=== PATIENT | female | born 1980 | race Caucasian/White ===

== ENCOUNTER 2016-07-25 18:47 | Emergency (ER) | payer OTHER ==
[~2016-07-25] VITALS: Ht 177.8 cm; Wt 63.6 kg
[2016-07-25 18:49] VITALS: BP 132/84; PULSE 85; RESP 22; O2SAT 99
[2016-07-25] MEDS ORDERED: Albuterol 2.5 mg/3 mL Inhalation Solution NEB ONE ×3 (18:55→21:30)
--- NOTE | 2016-07-25 18:57 | ED.REPORT ---
HPI-Allergic Reaction Date of Service Jul 25, 2016 ED Provider: Dr Montelongo Pt is an otherwise healthy 36 year old female with a seafood allergy who presents to the ED with SOB after eating chicken 15 minutes ago. The pt c/o associated coughing, nausea, and cannot speak more than one word. The pt denies any other symptoms. Nursing Notes Stated Complaint: ALLERGIC REACTION/PROBLEMS BREATHING Chief Complaint: Allergic Reaction Nursing Notes Reviewed: Yes Allergies: Coded Allergies: shellfish derived (Verified Allergy, Unknown, 07/25/16) General Time Seen by MD: 18:57 Chief Complaint Allergic reaction Hx Obtained From: Patient Arrived By: Walk-in Onset Occurred: 1 - 15 minutes ago Symptom Duration: Since onset Recent Healthcare: No recent doctor visit, No recent hospitalization Similar Sx Previous: Yes Past Medical History Past Medical History Seafood allergy Denies: Congestive heart failure, Diabetes mellitus Past Surgical History Breast augmentation Knee Smoking History Unknown if Ever Smoker Social History Alcohol Use: Denies alcohol use Drug Use: Denies drug use Other Social History: Good social support Ambulatory Status Independent Review of Systems Constitutional: Denies: Chills Respiratory: Reports: Non-productive cough, Shortness of breath GI: Reports: Nausea, Denies: Vomiting Allergy / Immune: Reports: Allergic reaction Complete sys rev & neg: except as marked. Physical Exam Initial Vital Signs Vital Signs (First) Date Time Temp Pulse Resp B/P Pulse Ox O2 Delivery O2 Flow Rate FiO2 07/25/16 18:49 85 22 132/84 99 Room Air 07/25/16 23:44 36.9 Initial VS: Reviewed ENT: Mucous membranes moist, Conjunctiva normal, No scleral icterus Neck: Supple, Full range of motion Abdomen / GI: Soft, Non-tender Extremities: Vascular intact, Neuro intact Neurologic: Alert, Oriented, Nonfocal Psychiatric: Mood/affect normal, Behavior normal General/Constitutional: Awake, Alert, Cooperative, Not toxic appearing Resp Distress / Stridor: Positive: Resp distress moderate Course wheezing bilaterally Cardiovascular: Heart rate NL, Regular rhythm, Heart sounds NL No angioedema Skin: Atraumatic, Warm, Dry, Intact Interpretation & Diagnostics Lab Results Interpretation Test 07/25/16 19:00 Hold Purple Top Tube Received (Received) Hold Blue Top Tube Received (Received) Hold [place] Top Tube Received (Received) Re-Eval/Medical Decision Source of Hx: Old records Re-Evaluation/Progress #1: Time of Eval: 19:26 Patient Status: Condition improved Re-Evaluation/Progress Note: Pt rechecked. Pt has significant improvement and is able to converse with her family. All questions were answered. Re-Evaluation/Progress #2: Time of Eval: 20:50 Patient Status: Condition improved Re-Evaluation/Progress Note: Pt rechecked. Pt has remarkable improvement. All questioned were answered. Re-Evaluation/Progress #3: Time of Eval: 21:30 Patient Status: Condition worsened Re-Evaluation/Progress Note: Pt rechecked. Pt is starting to cough and get wheezy again. All questions were answered. Re-Evaluation/Progress #4: Time of Eval: 23:28 Patient Status: Condition improved Re-Evaluation/Progress Note: Pt rechecked. All symptoms resolved. The pt has an epipen at home and will take one home. Pt does not want to be admitted. She had her with her. Informed pt of plan for discharge. Pt understands and agrees with plan for discharge. F/U instructions and RTER warnings given. All questions addressed. Counseled Regarding: Diagnosis, Lab results, Need for follow-up, When/why to return to ED Discharge & Departure Primary Impression: Anaphylaxis Encounter type: initial encounter Qualified Code: T78.2XXA - Anaphylactic shock, unspecified, initial encounter Additional Impression: Seafood allergy Disposition: Home Discharge Condition All VS Reviewed: Yes Condition: Stable Patient Instructions: Anaphylaxis (ED) Additional Instructions: Keep the EpiPen with you at all times. Use if you need it. Take Prednisone daily for 5 days and [id number] Benadryl as directed. If you have any shortness of breath or any tongue or lip swelling give yourself the epinephrine and come right to the emergency department. I recommend that you contact your primary care physician for referral to an bond analyst to try to find out what else you are also allergic to. Return tonight if any problems or any new or worrisome symptoms. Referrals: Mike Brown DO (PCP) Crit Care Except Billable Proc Time Spent: 105-134 minutes Services Performed: Patient management by me (frequent evaluations, epinephrine administration and multiple doses of bronchodilators. Critical care time of 120 minutes.), Time spent at bedside, Reviewing test results, Discussing patient care, Time with fam/surrogate Scribe Attestation Portions of this note were transcribed by Chantal Guerin. I, Dr. Sherwood personally performed the history, physical exam and medical decision-making; I reviewed and confirmed the accuracy of the information in the transcribed note. Signed by: Venus Braxton, 07/25/16 and 20:20 copies to: Mike Brown Todd P DO Jul 25, 2016 18:57 Chantal King Jul 25, 2016 19:40
[2016-07-25] MEDS ORDERED: Dexamethasone 10 mg/mL Inj IVPUSH ONE (19:00)
[2016-07-25 19:03] VITALS: PULSE 89; RESP 29; O2SAT 100
[2016-07-25] MEDS: Sodium Chloride LOK Flush 10 mL Syringe IVFLUSH SCH ×2 (19:15→19:18)
[2016-07-25 19:46] VITALS: BP 127/76; PULSE 114; RESP 19; O2SAT 100
[2016-07-25 21:12] VITALS: BP 119/65; PULSE 102; RESP 21; O2SAT 99
[2016-07-25 22:16] VITALS: BP 129/62; PULSE 129; RESP 18; O2SAT 94
[2016-07-25 23:44] VITALS: BP 122/62; PULSE 115; RESP 22; O2SAT 97
== END 2016-07-26 00:17 | disposition home or self-care (01) ==
LOC: SED 18:47
DX: R06.2 Wheezing (principal); T78.2XXA Anaphylactic shock, unspecified, initial encounter; X58.XXXA Exposure to other specified factors, initial encounter; Y93.89 Activity, other specified; Y99.8 Other external cause status; Y92.9 Unspecified place or not applicable; Z91.013 Allergy to seafood
CPT/HCPCS: 94644; 94645; 96372; 96374; 96375; 99291; 99292; J0171; J1100; J1200; J7613